=== PATIENT | female | born 1980 | race Asian ===

== ENCOUNTER 2024-01-17 12:36 | Outpatient (AMB) | payer OTHER, SELFPAY ==
[2024-01-17 12:37] VITALS: BP 122/68; PULSE 66; O2SAT 99; BMI 23.0
--- NOTE | 2024-01-17 12:37 | MHC.PC.OV ---
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 Accompanied by: Spouse Allergies No Known Allergies Allergy (Verified 01/17/24 12:45) Medication List - Last Reconciled 01/17/24 by Herrera Muñiz MD ascorbate calcium (vitamin C) 1 g PO Q6H calcium carbonate (Calcium 600) 600 mg PO DAILY [COLLAGEN PEPTIDES 0.5 sc PO] collagen,hydrolyz-ascorbate Ca 1 gram- 10 mg 2 tabs PO .QD ferrous sulfate (FeroSul) 325 mg PO DAILY [MCT welness powder 1 scoop] milk thistle 150 mg PO BID multivitamin 1 tab PO DAILY Tobacco use date assessed: 07/13/22 Dental Screening Dental Screen Date: 01/17/24 Did you have a dental visit in the last 12 months?: Yes Did you have a dental problem in the last 6 months where you did not have access to dental care?: No Was dental information given to patient?: Patient has dentist HPI PE HPI Details 43-year-old female with a history of anemia and bilateral hand numbness seen last 08/01/2022 coming in for physical exam. occ gas x PFSH Medical History (Updated 01/17/24 @ 13:07 by Herrera Muñiz MD) Breast cancer screening by mammogram Family History Mother No problems noted. Father Alcohol abuse Sister No problems noted. Son No problems noted. Son No problems noted. Daughter No problems noted. Social History (Updated 01/17/24 @ 12:55 by Herrera Muñiz MD) Housing: House Alcohol intake: current Comment: once a year 1 glass Patient Tobacco Use Status: Never used Tobacco Tobacco use type: Cigarette e-Cigarette/Vaping Use: Never Used Second Hand Smoke Exposure: No service: No Current occupational status: employed Cognitive needs: No Hearing needs: No Vision needs: No Questionnaire PHQ-9 Over the last 2 weeks, how often have you been bothered by any of the following problems? 1. Little interest or pleasure in doing things: not at all 2. Feeling down, depressed, or hopeless: not at all 3. Trouble falling or staying asleep, or sleeping too much: not at all 4. Feeling tired or having little energy: not at all 5. Poor appetite or overeating: not at all 6. Feeling bad about yourself - or that you are a failure or have let yourself or your family down: not at all 7. Trouble concentrating on things, such as reading the newspaper or watching television: not at all 8. Moving or speaking so slowly that other people could have noticed. Or the opposite - being so fidgety or restless that you have been moving around a lot more than usual: not at all 9. Thoughts that you would be better off or of hurting yourself in some way: not at all Total score: 0 Source: Developed by Drs. Isai Salazar, Abeba Denny, Chris Ramirez and colleagues, with an educational blanca from [employer]. Thrive Questionnaire Date Thrive assessed: 07/13/22 I am a: Patient What is your living situation today?: I have a steady place to live Within the past 12 months, did the food you bought not last and you didn't have the money to get more?: Never true Within the past 12 months, did you worry whether your food would run out before you got money to buy more?: I choose not to answer this question Do you have trouble paying for medicines?: I choose not to answer this question Do you have trouble getting transportation to medical appointments?: No Do you have trouble paying your heating and electricity bill?: I choose not to answer this question Do you have trouble taking care of your child, family member or friend?: No Do you have trouble with day-to-day activities such as bathing, preparing meals, shopping, managing finances, etc.?: No Are you currently unemployed and looking for a job?: I choose not to answer this question Are you interested in more education?: Yes Please select the resources that you would like help with: None Currently or been in a relationship where the following occur: No concerns reported THRIVE Score: 0 AUDIT C Alcohol Use Questionnaire (AUDIT-C) 1. How often do you have a drink containing alcohol?: Never Total Score: 0 KAREN-7 AMB Questionnaire KAREN-7 Date KAREN - 7 assessed: 07/13/22 Feeling nervous, anxious, or on edge: 0 = Not at all Not being able to stop or control worryin = Not at all Worrying too much about different things: 0 = Not at all Trouble relaxin = Not at all Being so restless that it is hard to sit still: 0 = Not at all Becoming easily annoyed or irritable: 0 = Not at all Feeling afraid as if something awful might happen: 0 = Not at all Total KAREN-7 score (0-4 normal; 5-9 mild; 10-14 moderate; 15-21 severe): 0 Source: Developed by Drs. Isai Salazar, Abeba Denny, Chris Ramirez and colleagues, with an educational blanca from [employer]. Review of Systems Const Denies poor appetite and Denies weakness Eyes Denies no additional complaints ENT Reports Normal hearing present, Denies dizziness, Denies nasal congestion, Denies tinnitus and Denies sore throat Card Denies chest pain, Denies syncope, Denies rapid heart rate and Denies dyspnea Resp Denies cough and Denies dyspnea GI Denies change in stool character, Reports constipation, Denies diarrhea, Denies nausea and Denies vomiting Denies urinary frequency, Denies difficulty voiding and Denies dysuria Neuro Reports Normal hearing present, Denies confusion, Denies dizziness, Denies syncope and Denies weakness Psych Denies confusion Physical exam (Primary Care) Vital Signs: Last Vital Signs Pulse 66 01/17/24 12:37 BP 122/68 01/17/24 12:37 Pulse Ox 99 01/17/24 12:37 Oxygen Delivery Method Room Air 01/17/24 12:37 BMI result Body Mass Index 23.0 Tobacco/Smoking Status: Tobacco use Status Tobacco use date assessed 07/13/22 01/17/24 12:39 Patient Tobacco Use Status Never used Tobacco 01/17/24 12:39 Tobacco use type Cigarette 01/17/24 12:45 e-Cigarette/Vaping Use Never Used 01/17/24 12:39 PHQ-9: PHQ-9 Score PHQ-9: Total score 0 01/17/24 12:39 Thrive Assessment: Date of Thrive Assessment Date Thrive assessed 07/13/22 01/17/24 12:39 Currently or been in a relationship where the following occur: No concerns reported Const General: No confusion Orientation/consciousness: No confusion HENMT Head: Yes normocephalic Ears: external ears normal and TM's normal bilaterally Face and sinus: Yes normal facial exam Mouth: moist mucous membranes Throat: Yes tonsils normal Eyes Conjunctivae: conjunctivae normal Pupils: Equal, round and reactive pupils present and Pupil accommodation reflex normal Direct Ophthalmoscopy: normal light reflex Neck Neck: No lymphadenopathy Thyroid: Thyroid normal Chest Chest palpation & inspection: normal inspection of the chest Resp Effort & Inspection: normal respiratory effort and no audible wheezes Auscultation: clear to auscultation bilaterally, no crackles, no wheezes and lung sounds not diminished Cardio Rate: regular rate Rhythm: regular rhythm Peripheral pulses: radial pulses present and dorsalis pedis present GI Palpation (GI): no masses Auscultation: normal bowel sounds and normoactive bowel sounds Rectal Exam - Female: deferred Skin General skin exam: no rashes or lesions noted Rashes: no rashes Neuro General: No confusion Cranial nerves: Yes Equal, round and reactive pupils present and Yes Normal hearing present Cognition (Neuro): normal cognition Gait exam (Neuro): Normal gait present Motor exam (neuro): 5/5 motor strength present throughout Deep tendon reflexes (DTR's): Right brachioradialis reflex intensity grade: 2+, Left brachioradialis reflex intensity grade: 2+, Right patellar reflex intensity grade: 2+ and Left patellar reflex intensity grade: 2+ Extrem General: No edema Assessment and Plan Assessment & Plan (1) Annual physical exam: Code(s): Z00.00 - Encounter for general adult medical examination without abnormal findings Plan: Patient is advised to eat healthy, keep well hydrated, keep active and have adequate sleep. (2) Anemia: Code(s): D64.9 - Anemia, unspecified Plan: Resolved but noted to have microcytosis (3) Bilateral hand numbness: Code(s): R20.0 - Anesthesia of skin Plan: Continue to monitor (4) Varicose veins of bilateral lower extremities with pain: Code(s): I83.813 - Varicose veins of bilateral lower extremities with pain Coding Level of Care Code Est Pt Prev Care 40-64y(49470) Diagnoses Annual physical exam Z00.00 Anemia D64.9 Bilateral hand numbness R20.0 Varicose veins of bilateral lower extremities with pain I83.813
== END 2024-01-17 13:27 | disposition home or self-care (01) ==
PROVIDERS: PCP Internal Medicine; Visit Provider Internal Medicine
DX: Z00.00 Encounter for general adult medical examination without abnormal findings (principal); D64.9 Anemia, unspecified; R20.0 Anesthesia of skin; I83.813 Varicose veins of bilateral lower extremities with pain
CPT/HCPCS: 99396

== ENCOUNTER 2025-01-29 13:07 | Outpatient (AMB) | payer OTHER, SELFPAY ==
[2025-01-29 13:09] VITALS: BP 106/68; PULSE 80; TEMP 36.3; O2SAT 99; BMI 23.2
--- NOTE | 2025-01-29 13:09 | A.OFFPC_ITS ---
Vital Signs 01/29/25 13:09 Height 5 ft Weight 119 lb BMI 23.2 BP 106/68 Blood Pressure Location Rt brachial Position Sitting Pulse 80 Pulse Source Pulse Oximeter Temp 97.3 F Temp Source Temporal Artery Scan Pulse Oximetry (%) 99 Oxygen Delivery Method Room Air Intake Visit Reasons: Annual Exam Allergies crab Allergy (Intermediate, Verified 01/29/25 13:16) Hives Medication List - Last Reconciled 01/29/25 by Herrera Muñiz MD ascorbate calcium (vitamin C) 1 g PO Q6H calcium carbonate (Calcium 600) 600 mg PO DAILY [COLLAGEN PEPTIDES 0.5 sc PO] collagen,hydrolyz-ascorbate Ca 1 gram- 10 mg 2 tabs PO .QD ferrous sulfate (FeroSul) 325 mg PO DAILY [MCT welness powder 1 scoop] milk thistle 150 mg PO BID multivitamin 1 tab PO DAILY turmeric mg PO Tobacco use date assessed: 01/29/25 Dental Screening Dental Screen Date: 01/29/25 Did you have a dental visit in the last 12 months?: Yes Did you have a dental problem in the last 6 months where you did not have access to dental care?: No Was dental information given to patient?: Patient has dentist HPI Annual Exam HPI Details History of Present Illness The patient is a 44-year-old female presenting for a physical examination and preventative care. The patient has a history of iron deficiency, which has been previously identified and managed. She is up to date with her cervical cancer screening and has a mammogram scheduled at [facility]. Her last mammogram was conducted in November 2024. Health Maintenance - Mammogram scheduled at [facility] - Cervical cancer screening up to date Social History Review of Systems Physical Exam General: Cooperative, healthy appearing, comfortable, no acute distress and well developed Orientation: Patient oriented x3 Limitations: No limitations Head: Normal to inspection Ears: Hearing grossly normal bilaterally Nose: Normal external nose present Face and sinus: Normal facial exam Eyes: Appearance normal, both eyes and all related structures Neck: Normal visual inspection and Yes full ROM Respiratory: Normal respiratory effort and able to speak in complete sentences. Clear to auscultation bilaterally Cardiovascular: Regular rate and rhythm. Normal S1 and S2 GI: Normal to inspection. Soft to palpation and nontender Skin: No rashes or lesions noted Neuro: Patient oriented x3 Extremities: Normal to inspection Results Plan Patient was informed and verbally consented to the use of an ambient scribe for clinic note documentation during this visit. Discussion Notes Patient Instructions [facility] Medical History Breast cancer screening by mammogram Family History Mother No problems noted. Father Alcohol abuse Sister No problems noted. Son No problems noted. Son No problems noted. Daughter No problems noted. Social History Housing: House Alcohol intake: current Comment: once a year 1 glass Patient Tobacco Use Status: Never used Tobacco Tobacco use type: Cigarette e-Cigarette/Vaping Use: Never Used Second Hand Smoke Exposure: No service: No Current occupational status: employed Cognitive needs: No Hearing needs: No Vision needs: No Questionnaire PHQ-9 Over the last 2 weeks, how often have you been bothered by any of the following problems? 1. Little interest or pleasure in doing things: not at all 2. Feeling down, depressed, or hopeless: not at all 3. Trouble falling or staying asleep, or sleeping too much: not at all 4. Feeling tired or having little energy: not at all 5. Poor appetite or overeating: not at all 6. Feeling bad about yourself - or that you are a failure or have let yourself or your family down: not at all 7. Trouble concentrating on things, such as reading the newspaper or watching television: not at all 8. Moving or speaking so slowly that other people could have noticed. Or the opposite - being so fidgety or restless that you have been moving around a lot more than usual: not at all 9. Thoughts that you would be better off or of hurting yourself in some way: not at all Total score: 0 Depression Screening Interpretation: Negative Depression Screening Done: Yes 35727 - PHQ-9 Billing: Yes Source: Developed by Drs. Isai Salazar, Abeba Denny, Chris Ramirez and colleagues, with an educational blanca from [employer]. Thrive Questionnaire Date Thrive assessed: 01/29/25 I am a: Patient What is your living situation today?: I have a steady place to live Within the past 12 months, did the food you bought not last and you didn't have the money to get more?: I choose not to answer this question Within the past 12 months, did you worry whether your food would run out before you got money to buy more?: I choose not to answer this question Do you have trouble paying for medicines?: I choose not to answer this question Do you have trouble getting transportation to medical appointments?: No Do you have trouble paying your heating and electricity bill?: I choose not to answer this question Do you have trouble taking care of your child, family member or friend?: No Do you have trouble with day-to-day activities such as bathing, preparing meals, shopping, managing finances, etc.?: No Are you currently unemployed and looking for a job?: No Are you interested in more education?: Yes Please select the resources that you would like help with: None Currently or been in a relationship where the following occur: No concerns reported THRIVE Score: 0 AUDIT C Alcohol Use Questionnaire (AUDIT-C) 1. How often do you have a drink containing alcohol?: Monthly or less 2. How many drinks containing alcohol do you have on a typical day when you are drinking?: 1 or 2 3. How often do you have six or more drinks on one occasion?: Never Total Score: 1 KAREN-7 AMB Questionnaire KAREN-7 Date KAREN - 7 assessed: 01/29/25 Feeling nervous, anxious, or on edge: 0 = Not at all Not being able to stop or control worryin = Not at all Worrying too much about different things: 0 = Not at all Trouble relaxin = Not at all Being so restless that it is hard to sit still: 0 = Not at all Becoming easily annoyed or irritable: 0 = Not at all Feeling afraid as if something awful might happen: 0 = Not at all Total KAREN-7 score (0-4 normal; 5-9 mild; 10-14 moderate; 15-21 severe): 0 Source: Developed by Drs. Isai Salazar, Abeba Denny, Chris Ramirez and colleagues, with an educational blanca from [email or web address] KAREN-7 Assessment Billing KAREN-7 Assessment Tool: KAREN-7 Assessment 67200 Physical exam (Primary Care) Vital Signs: Last Vital Signs Temp 97.3 F 01/29/25 13:09 Pulse 80 01/29/25 13:09 BP 106/68 01/29/25 13:09 Pulse Ox 99 01/29/25 13:09 Oxygen Delivery Method Room Air 01/29/25 13:09 BMI result Body Mass Index 23.2 Tobacco/Smoking Status: Tobacco use Status Tobacco use date assessed 01/29/25 01/29/25 13:19 Patient Tobacco Use Status Never used Tobacco 01/29/25 13:10 Tobacco use type Cigarette 01/29/25 13:10 e-Cigarette/Vaping Use Never Used 01/29/25 13:10 PHQ-9: PHQ-9 Score PHQ-9: Total score 0 01/29/25 13:19 Depression Screening Interpretation: Negative Thrive Assessment: Date of Thrive Assessment Date Thrive assessed 01/29/25 01/29/25 13:19 Currently or been in a relationship where the following occur: No concerns reported Const General: alert and awake HENMT Head: Yes normocephalic Ears: external ears normal and TM's normal bilaterally Face and sinus: Yes normal facial exam Mouth: moist mucous membranes Throat: Yes tonsils normal Eyes Conjunctivae: conjunctivae normal Pupils: Equal, round and reactive pupils present and Pupil accommodation reflex normal Direct Ophthalmoscopy: normal light reflex Neck Neck: No lymphadenopathy Thyroid: Thyroid normal Chest Chest palpation & inspection: normal inspection of the chest Resp Effort & Inspection: normal respiratory effort and no audible wheezes Auscultation: clear to auscultation bilaterally, no crackles, no wheezes and lung sounds not diminished Cardio Rate: regular rate Rhythm: regular rhythm Peripheral pulses: radial pulses present and dorsalis pedis present GI Palpation (GI): no masses Auscultation: normal bowel sounds and normoactive bowel sounds Rectal Exam - Female: deferred Skin General skin exam: no rashes or lesions noted Rashes: no rashes Neuro General: deep tendon reflexes 2+ bilaterally Cranial nerves: Yes Equal, round and reactive pupils present, Yes Midline tongue present and Yes Ability to bilaterally elevate shoulders present Cognition (Neuro): normal cognition Gait exam (Neuro): Normal gait present Motor exam (neuro): 5/5 motor strength present throughout Deep tendon reflexes (DTR's): Right brachioradialis reflex intensity grade: 2+, Left brachioradialis reflex intensity grade: 2+, Right patellar reflex intensity grade: 2+ and Left patellar reflex intensity grade: 2+ Extrem General: No edema Coding Level of Care Code Est Pt Prev Care 40-64y(34799) Diagnoses Annual physical exam Z00.00 Colon cancer screening Z. Breast cancer screening by mammogram Z. Microcytosis R71.8 Additional Codes KAREN-7 Assessment Billing - KAREN-7 Assessment Tool: KAREN-7 Assessment 22768 ([id number]) PHQ-9 - 82546 - PHQ-9 Billing: Yes ([id number]) Assessment & Plan Assessment & Plan (1) Annual physical exam: Code(s): Z00.00 - Encounter for general adult medical examination without abnormal findings Category: Medical Plan: Patient is advised to eat healthy, keep well hydrated, keep active and have adequate sleep. (2) Colon cancer screening: Code(s): Z04.24 - Encounter for screening for malignant neoplasm of colon Category: Medical Plan: Referral to Gastroenterology for colonoscopy (3) Breast cancer screening by mammogram: Comment: November 2024 Code(s): Z05.14 - Encounter for screening mammogram for malignant neoplasm of breast Category: Medical Plan: Reminded about mammogram. Patient is up-to-date (4) Microcytosis: Code(s): R71.8 - Other abnormality of red blood cells Category: Medical Plan: Patient is advised to get blood work . patient is taking iron Orders: Orders Complete Blood Count Auto Diff Today D64.9 - Anemia, unspecified Ferritin Today D64.9 - Anemia, unspecified Lipid Panel Today D64.9 - Anemia, unspecified, E78.00 - Pure hypercholesterolemia, unspecified Thyroid Stimulating Hormone Today D64.9 - Anemia, unspecified Vitamin B12 and Folate Today D64.9 - Anemia, unspecified Vitamin D 25-OH Total Today D64.9 - Anemia, unspecified UA CC w/rflx Micro + Cult Today D64.9 - Anemia, unspecified, R30.0 - Dysuria Comprehensive Met. Panel Today D64.9 - Anemia, unspecified IRON PROFILE Today D64.9 - Anemia, unspecified Free T4 (Free Thyroxine) Today D64.9 - Anemia, unspecified Hemoglobin A1c Today D64.9 - Anemia, unspecified Magnesium Today D64.9 - Anemia, unspecified Referrals Gastroenterology Referral Z12.11 - Encounter for screening for malignant neoplasm of colon
--- OUTSIDE RECORDS SUMMARY | 2025-01-29 16:43 | XMS_ITS | Continuity of Care Document ---
Author Organization [facility] [address] [place] [address] Phone [phone] Social History Type Date Description Comments Sex Female Sex Unknown Medical Devices Description No Information Available Encounters Description No Information Available Assessments Description No Information Available Plan of Treatment No Information Available Functional Status Description No Information Available Mental Status Description No Information Available Referrals Description No Information Available
== END 2025-01-29 14:02 | disposition home or self-care (01) ==
LOC: HO.HMCH 13:08
PROVIDERS: PCP Internal Medicine; Visit Provider Internal Medicine
DX: Z00.00 Encounter for general adult medical examination without abnormal findings (principal); Z12.11 Encounter for screening for malignant neoplasm of colon; Z12.31 Encounter for screening mammogram for malignant neoplasm of breast; R71.8 Other abnormality of red blood cells

== ENCOUNTER 2025-01-29 13:07 | Outpatient (REF) | payer OTHER, SELFPAY ==
[2025-01-29 16:10] LABS: MANUAL DIFF FLAG NO
[2025-01-29 16:23] LABS: Hematocrit 39.3 % (37.0-47.0); Hemoglobin 13.3 g/dl (12.0-16.0); Imm Gran Abs Auto 0.01 X10*3/uL (0.00-0.03); Imm Gran Pct Auto 0.1 % (0.0-0.4); Lymphocytes Absolute Auto 2.1 X10*3/uL (1.2-4.9); Mean Corpuscular HGB Conc 33.8 g/dl (31.0-35.0); Mean Corpuscular Hemoglobin 24.4 pg (27.0-33.0); Mean Corpuscular Volume 72.2 fL (80.0-98.0); NRBC Abs Auto 0.000 X10*3/uL (0.0-0.012); NRBC Pct Auto 0.0 /100WBC (0.0-0.2); Platelet Count 273 X10*3/uL (160-400); Red Blood Count 5.44 X10*6/uL (4.20-5.50); White Blood Count 6.8 X10*3/uL (4.8-10.8)
[2025-01-29 16:30] LABS: Appearance Urine Clear; Glucose Urine UA Negative (Negative); PH 6.0 (5.0-9.0); Specific Gravity - Urine 1.020 (1.005-1.025); UMIC TRIGGER UACC YES
[2025-01-29 16:33] LABS: UACC Culture Trigger YES
[2025-01-29 17:20] LABS: Alanine Aminotransferase 18 U/L (0-31); Albumin Level 5.0 g/dL (3.5-5.0); Alkaline Phosphatase 48 U/L (39-117); Anion Gap 13 (12-20); Aspartate Amino Transferase 20 U/L (5-31); Blood Urea Nitrogen 15 mg/dL (9-16); Calcium 9.3 mg/dL (8.4-10.2); Carbon Dioxide 25 mmol/L (22-29); Chloride 107 mmol/L (96-108); Cholesterol 153 mg/dL (<200); Estimated Glomerular Filt Rate > 60; HDL Cholesterol 62 mg/dL (>40); Iron 92 mcg/dL (30-160); Magnesium 2.4 mg/dL (1.6-2.6); Percent Iron Saturation 33 % (15-50); Potassium 4.0 mmol/L (3.3-5.1); Sodium 141 mmol/L (135-145); Total Iron Binding Capacity 280 mcg/dL (228-428); Total Protein 7.6 g/dL (6.5-8.0); Triglycerides 67 mg/dL (<150); Unsaturated Iron Binding 188 ug/dL
[2025-01-29 17:23] LABS: Ferritin 205 ng/mL (10-250); Free T4 (Free Thyroxine) 1.11 ng/dL (0.71-1.85); Thyroid Stimulating Hormone 1.01 uIU/mL (0.32-4.0)
[2025-01-29 17:41] LABS: Folate 17.3 ng/mL (> or = 4.0); Vitamin B12 959 pg/mL (200-900)
== END 2025-01-29 13:08 | disposition home or self-care (01) ==
LOC: HO.LAB 13:07
PROVIDERS: PCP Internal Medicine; Visit Provider Internal Medicine
DX: Z00.00 Encounter for general adult medical examination without abnormal findings (principal); Z12.11 Encounter for screening for malignant neoplasm of colon; Z12.31 Encounter for screening mammogram for malignant neoplasm of breast; R71.8 Other abnormality of red blood cells; E78.00 Pure hypercholesterolemia, unspecified; D64.9 Anemia, unspecified; R30.0 Dysuria; Z79.899 Other long term (current) drug therapy
CPT/HCPCS: 36415; 80053; 80061; 81001; 82306; 82607; 82728; 82746; 83036; 83540; 83735; 84439; 84443; 85025; 87086; 96127; 99396